=== PATIENT | male | born 1970 | race Asian ===

== ENCOUNTER 2017-12-18 23:27 | Emergency (ER) | payer OTHER, SELFPAY ==
[2017-12-19] MEDS ORDERED: Ketorolac Tromethamine 60 MG/2 ML VIAL ONE (00:37)
[2017-12-19] MEDS ORDERED: Metoclopramide HCl 10 MG TAB ONE (00:39)
== END 2017-12-19 01:05 | disposition home or self-care (01) ==
LOC: ERS 23:27
DX: G44.209 Tension-type headache, unspecified, not intractable (principal); I10 Essential (primary) hypertension; E78.5 Hyperlipidemia, unspecified; F41.9 Anxiety disorder, unspecified; F17.210 Nicotine dependence, cigarettes, uncomplicated; Z79.899 Other long term (current) drug therapy
CPT/HCPCS: 96372; J1885